=== PATIENT | female | born 1945 | race Caucasian/White ===

== ENCOUNTER 2020-02-06 12:03 | Emergency (ER) | payer OTHER, MEDICARE ==
[2020-02-06 12:36] LABS: Absolute Lymphocytes (CBC) 1.3 K/uL (0.7-4.9); Basophils % 0.9 % (0-1.3); Hematocrit 45.4 % (36.0-45.0); MPV 9.5 fL (7.6-11.3); Protime INR 0.99; RBC Red Blood Cell Count 5.13 M/uL (3.86-4.86)
--- NOTE | 2020-02-06 12:36 | EKG ---
Test Date: 2020-02-06 Test Time: 12:12:39 [place] Singer: BP MEASUREMENT RESULTS: Intervals: Rate: 83 KS: 134 QRSD: 74 QT: 366 QTc: 430 [place]: P: 47 KS: 134 QRS: 19 T: 46 INTERPRETIVE STATEMENTS: Normal sinus rhythm Nonspecific ST and T wave abnormality Abnormal ECG Compared to ECG 08/22/2014 11:18:15 ST (T wave) deviation now present Electronically Signed On 02-06-20 12:35:20 CDT by Davon Malhotra
[2020-02-06 12:54] LABS: ALT/SGPT 9 U/L (12-78); AST/SGOT 15 U/L (15-37); Albumin 3.9 g/dL (3.4-5.0); Alkaline Phosphatase 109 U/L (45-117); BUN Blood Urea Nitrogen 11 mg/dL (7-18); Bicarbonate 23 mmol/L (21-32); Bilirubin Direct 0.1 mg/dL (0-0.2); Bilirubin Total 0.4 mg/dL (0.2-1.0); Glucose Level 99 mg/dL (74-106); Magnesium 2.1 mg/dL (1.8-2.4); NT PRO-BNP 252 pg/mL (<125); Protein, Total 7.5 g/dL (6.4-8.2); Sodium Level 145 mmol/L (136-145); Troponin (Emerg Dept Use Only) < 0.02 ng/mL (0.0-0.045)
[2020-02-06] MEDS ORDERED: ASPIRIN 81 MG CHEWABLE TABLET ONE (12:54)
[2020-02-06] MEDS ORDERED: ONDANSETRON 4 MG/2 ML VIAL ONE (13:03)
[2020-02-06 13:07] LABS: Blood Morphology Comment NOT SEEN (NOT SEEN); Platelet Estimate ADEQ; Urine White Blood Cell Casts OK
[2020-02-06] MEDS ORDERED: FENTANYL CITR 100 MCG/2 ML ONE (13:07)
--- NOTE | 2020-02-06 13:14 | RAD REPORT ---
EXAM DESCRIPTION: RAD - Chest Single View - 02/06/2020 1:06 pm CLINICAL HISTORY: CHEST PAIN COMPARISON: Two view chest December 2007 TECHNIQUE: AP portable chest image was obtained 02/06/2020 1:06 pm . FINDINGS: No peripheral mass or consolidation. Lung markings are accentuated slightly by shallow ins piration and overlying soft tissues. No significant change in the interstitial pattern since remote i maging. Heart size is normal. No vascular engorgement. Rounded density along the right-side lower thoracic sp ine is probably summation of vasculature accentuated by the low lung volume examination. No measurabl e pleural effusion and no pneumothorax. No acute bony abnormality seen. No acute aortic findings susp ected. IMPRESSION: No failure, infiltrate or acute chest finding. Small rounded density along the right side lower thoracic spine is probably artifact of overlapping n ormal structures. Follow-up two view chest with good inspiration could be obtained.
--- OUTSIDE RECORDS SUMMARY | 2020-02-06 14:04 | XMS REPORT | Continuity of Care Document ---
:1945 Author Organization [facility] Care Team Providers Name Role Phone [facility] Unavailable Un available Problems Problem Status Onset Classification Date Comments Sourc e Date Reported M84.351A - Active [facility] "STRESS 7 [place] FRACTURE, RIGHT FEMUR Medications No Data Provided for This Section Allergies, Adverse Reactions, Alerts No Known Medication Allergies Immunizations No Data Provided for This Section Results No Data Provided for This Section Pathology Reports No Data Provided for This Section Diagnostic Reports Report Value Date Source Femur wo contrast MRI MRI RIGHT FEMUR WITHOUT CONTRAST 7 [facility] HISTORY: ; M84.351A Str ess fracture, right femur, initial encounter for fracture; right lower extremity pain COMPARISON: None available. FINDINGS: Right femur appears normal. Bone marrow signal is normal. No fracture, osseous stress reaction, or osseous lesion is identified. There is mild soft tissue in flammatory-like signal at the distal myotendinous junction of the vastus lateralis which is incompletely visualized and suggestive of possible low-grade myotendinous strain v ersus volume averaging with the transition to the suprapatellar recess of the knee joint (axial series 701 images 5 and 6). No other soft tissue abnorma lity is seen. No soft tissue mass or fluid collection. IMPRESSION: 1. Normal right femur. No stress fracture or oss eous stress reaction. 2. Trace inflammatory-like s ignal at the distal myotendinous junction of the vastus lateralis is incompletely visualized and could represent low-grade strain or may represent volume averaging of the nor mal transition to the knee joint. Correlate clin ically. SL: [id number] Consultation Notes No Data Provided for This Section Discharge Summaries No Data Provided for This Section History and Physicals No Data Provided for This Section Vital Signs No Data Provided for This Section Encounters Location Location Encounter Encounter Reason Attending ADM [place] Stat Source Details Type Number For Provider Date Date Visit [facility] Outpt Dia [id number] Venancio 08/21 08/22 [facility] Amarilis Hughes /2016 [facility] Procedures No Data Provided for This Section Assessment and Plan No Data Provided for This Section Plan of Care No Data Provided for This Section Social History Social History Date Source No data available for this 08/22/2016 [facility] and section Family History No Data Provided for This Section Advance Directives No Data Provided for This Section Functional Status No Data Provided for This Section
--- NOTE | 2020-02-06 14:29 | ER ---
Nurse's Notes [facility] Name: Lakeisha Rea Age: 74 yrs Sex: Female : 1945 Arrival Date: 02/06/2020 Time: 12:05 Bed 18 Private MD: Chapo De Diagnosis: Chest pain, unspecified Presentation: 02/05 12:19 Chief complaint: Patient states: left sided chest pain started upon waking this morning iw at 0500. 12:19 Method Of Arrival: Ambulatory iw 12:19 Coronavirus screen: At this time, the client does not indicate any symptoms associated iw with coronavirus-19. Ebola Screen: Patient negative for fever greater than or equal to 101.5 degrees Fahrenheit, and additional compatible Ebola Virus Disease symptoms Patient denies exposure to infectious person. Patient denies travel to an Ebola-affected area in the 21 days before illness onset. No symptoms or risks identified at this time. Risk Assessment: Do you want to hurt yourself or someone else? Patient reports no desire to harm self or others. 12:19 Acuity: CARLOS 3 iw 13:08 Initial Sepsis Screen: Does the patient meet any 2 criteria?. bp Triage Assessment: 12:20 General: Appears in no apparent distress. comfortable, obese, Behavior is cooperative, bp appropriate for age, anxious. Pain: Complains of pain in chest. EENT: No deficits noted. Neuro: No deficits noted. Cardiovascular: Rhythm is sinus rhythm. Respiratory: No deficits noted. GI: No signs and/or symptoms were reported involving the gastrointestinal system. : No signs and/or symptoms were reported regarding the genitourinary system. Derm: No deficits noted. Musculoskeletal: No deficits noted. Historical: - Allergies: 12:37 Codeine; iw - Home Meds: 12:56 topiramate 25 mg oral tab 2 times per day [Active]; Treximet 85-500 mg oral tab daily iw [Active]; lansoprazole 30 mg oral cpDR 1 cap once daily [Active]; - PMHx: 12:56 Migraines; acid reflux; iw - PSHx: 12:56 Hysterectomy; iw - Immunization history:: Adult Immunizations up to date. - Social history:: Smoking status: Patient denies any tobacco usage or history of. Screenin:40 Abuse screen: Denies threats or abuse. Denies injuries from another. Nutritional bp screening: No deficits noted. Tuberculosis screening: No symptoms or risk factors identified. Fall Risk None identified. Assessment: 12:20 General: SEE TRIAGE NOTE. Pain: Pain radiates to neck Pain began 2-3 days ago. bp Cardiovascular: Rhythm is sinus rhythm. 12:59 Reassessment: PT DECLINING IV ANALGESICS AT THIS TIME. PROVIDER INFORMED. bp 13:06 Reassessment: PT REFUSING ADMIT, INSIST ON SIGN OUT AMA. PROVIDER AT B/S TO SUPERVISOR METAL CANS PT bp TO REMAIN, BUT PT DECLINES. STATES NO CURRENT ACUTE S/S. PT ADVISED TO RETURN OR CALL 911 IS S/S RETURN OR WORSEN. 13:30 Reassessment: PT AGREED TO REMAIN FOR CXR 2 VIEW. bp 14:56 Reassessment: CXR UNREMARKABLE PER PROVIDER. PT [place]. bp Vital Signs: 12:19 BP 118 / 72; Pulse 88; Resp 16 S; Temp 98.0; Pulse Ox 100% on R/A; Weight 72.12 kg; iw Height 4 ft. 10 in. (147.32 cm); Pain 5/10; 13:00 BP 128 / 71; Pulse 81; Resp 16; Pulse Ox 100% ; bp 13:48 BP 127 / 61; Pulse 70; Resp 16; Temp 98; Pulse Ox 99% ; bp 12:19 Body Mass Index 33.23 (72.12 kg, 147.32 cm) iw ED Course: 12:05 Patient arrived in ED. ag5 12:05 Chapo De MD is Private Physician. ag5 12:08 Chapo Casillas, RN is Primary Nurse. bp 12:09 Angela Galeas FNP-C is PHCP. kb 12:09 Peter Gresham MD is Attending Physician. kb 12:30 Inserted saline lock: 20 gauge in right antecubital area, using aseptic technique. bp Blood collected. 12:36 Triage completed. iw 12:37 Arm band placed on. iw 12:40 Patient has correct armband on for positive identification. Placed in gown. Bed in low bp position. Call light in reach. Side rails up X2. food editor on. Pulse ox on. NIBP on. 13:06 XRAY Chest (1 view) In Process Unspecified. EDMS 13:07 No provider procedures requiring assistance completed. IV discontinued, intact, bp bleeding controlled, No redness/swelling at site. Pressure dressing applied. Patient maintains SpO2 saturation greater than 95% on room air. 13:49 Chest Pa And Lat (2 Views) XRAY Sent. bp 14:28 Chapo De MD is Referral Physician. kb 14:40 Chest Pa And Lat (2 Views) XRAY In Process Unspecified. EDMS Administered Medications: 12:45 Drug: Aspirin Chewable Tablet 324 mg Route: PO; bp 12:50 Follow up: Response: No adverse reaction bp 13:05 Not Given (Patient Refused): Zofran (Ondansetron) 4 mg IVP once; over 2 minutes bp 13:05 Not Given (Patient Refused): fentaNYL (PF) 50 mcg IVP once; RASS on ADMIN: Combtv4, bp Very Agttd3, Agttd2, Rstlss1, AlertClm0, Drwsy-1, Lt Sdtn-2, Mod Sdtn-3, Dp Sdtn-4, UnArsble-5 Outcome: 13:07 AMA AMA form signed bp 13:07 Condition: stable 13:07 Instructed on the need for admit. 14:56 Patient left the ED. bp Signatures: Dispatcher [employer] EDMS Angela Galeas, TOOL TECHNICIAN-C TOOL TECHNICIAN-Komal Johnson, RN RN Chapo Green, RN RN Tucker Valero ag5 Corrections: (The following items were deleted from the chart) 12:41 12:19 Pulse 88bpm; Resp 16bpm; Spontaneous; Pulse Ox 100% RA; Temp 98.0F; 72.12 kg; iw Height 4 ft. 10 in.; BMI: 33.2; Pain 5/10; iw
--- NOTE | 2020-02-06 14:29 | EDPHYS ---
Physician Documentation [facility] Name: Lakeisha Rea Age: 74 yrs Sex: Female : 1945 Arrival Date: 02/06/2020 Time: 12:05 Bed 18 Private MD: Chapo De ED Physician Peter Gresham HPI: 02/05 14:08 This 74 yrs old Female presents to ER via Ambulatory with complaints of Chest kb Pain. 14:08 The patient or guardian reports chest pain that is located primarily in the anterior kb chest wall, left. Onset: this morning. The pain radiates to the left arm, left neck. Associated signs and symptoms: The patient has no apparent associated signs or symptoms. The chest pain is described as aching. Duration: The patient or guardian reports a single episode, that is still ongoing. Modifying factors: The symptoms are alleviated by nothing. the symptoms are aggravated by nothing. Severity of pain: At its worst the pain was moderate a 8 / 10 in the emergency department the pain has improved moderately, is a 5 / 10. The patient has not experienced similar symptoms in the past. The patient has been recently seen by a physician: the patient's primary care provider, earlier today, with similar presenting complaints, and was sent to the [facility] Emergency Department for further evaluation. Pt reports left chest pain that woke her from sleep at 0500 this morning. States the pain radiated to left neck and arm. She rested in bed for a while and the pain dulled, but never subsided. Went to Dr De's office and was told to come to the ER for evaluation. Historical: - Allergies: 12:37 Codeine; iw - Home Meds: 12:56 topiramate 25 mg oral tab 2 times per day [Active]; Treximet 85-500 mg oral tab daily iw [Active]; lansoprazole 30 mg oral cpDR 1 cap once daily [Active]; - PMHx: 12:56 Migraines; acid reflux; iw - PSHx: 12:56 Hysterectomy; iw - Immunization history:: Adult Immunizations up to date. - Social history:: Smoking status: Patient denies any tobacco usage or history of. ROS: 14:08 Constitutional: Negative for fever, chills, and weight loss, Neck: Negative for injury, kb pain, and swelling, Respiratory: Negative for shortness of breath, cough, wheezing, and pleuritic chest pain, Abdomen/GI: Negative for abdominal pain, nausea, vomiting, diarrhea, and constipation, Back: Negative for injury and pain, MS/Extremity: Negative for injury and deformity, Skin: Negative for injury, rash, and discoloration, Neuro: Negative for headache, weakness, numbness, tingling, and seizure. 14:08 Cardiovascular: Positive for chest pain, of the anterior aspect of left upper chest. Exam: 14:08 Constitutional: This is a well developed, well nourished patient who is awake, alert, kb and in no acute distress. Head/Face: Normocephalic, atraumatic. Chest/axilla: Normal chest wall appearance and motion. Nontender with no deformity. No lesions are appreciated. Cardiovascular: Regular rate and rhythm with a normal S1 and S2. No gallops, murmurs, or rubs. Normal PMI, no JVD. No pulse deficits. Respiratory: Lungs have equal breath sounds bilaterally, clear to auscultation and percussion. No rales, rhonchi or wheezes noted. No increased work of breathing, no retractions or nasal flaring. Abdomen/GI: Soft, non-tender, with normal bowel sounds. No distension or tympany. No guarding or rebound. No evidence of tenderness throughout. Skin: Warm, dry with normal turgor. Normal color with no rashes, no lesions, and no evidence of cellulitis. MS/ Extremity: Pulses equal, no cyanosis. Neurovascular intact. Full, normal range of motion. Neuro: Awake and alert, GCS 15, oriented to person, place, time, and situation. Cranial nerves II-XII grossly intact. Motor strength 5/5 in all extremities. Sensory grossly intact. Cerebellar exam normal. Normal gait. Vital Signs: 12:19 BP 118 / 72; Pulse 88; Resp 16 S; Temp 98.0; Pulse Ox 100% on R/A; Weight 72.12 kg; iw Height 4 ft. 10 in. (147.32 cm); Pain 5/10; 13:00 BP 128 / 71; Pulse 81; Resp 16; Pulse Ox 100% ; bp 13:48 BP 127 / 61; Pulse 70; Resp 16; Temp 98; Pulse Ox 99% ; bp 12:19 Body Mass Index 33.23 (72.12 kg, 147.32 cm) iw MDM: 12:09 Patient medically screened. kb 14:06 Data reviewed: vital signs, nurses notes. Data interpreted: Pulse oximetry: on room air kb is 99 %. Interpretation: normal. Counseling: I had a detailed discussion with the patient and/or guardian regarding: the historical points, exam findings, and any diagnostic results supporting the discharge/admit diagnosis, lab results, radiology results, the need for further work-up and treatment in the hospital. Response to treatment: and as a result, I will admit patient. 14:07 Refusal of service: The patient/guardian displays adequate decision making capability kb and despite a detailed discussion of alternatives, benefits, risks, and consequences refuses: Admission to the hospital for further work-up and treatment. 14:10 ED course: Pt educated on need to be admitted for further evaluation and serial cardiac kb enzymes. Pt does not want to stay, states she didn't think she even needed to come in the first place. Educated on risks of leaving AMA. Pt will return for worsening symptoms and as needed, as well as follow up with Dr De. . 14:12 The patient was given aspirin in the Emergency Department. kb 02/05 12:09 Order name: Basic Metabolic Panel; Complete Time: 12:59 kb 02/05 12:09 Order name: CBC with Diff; Complete Time: 13:10 kb 02/05 12:09 Order name: LFT's; Complete Time: 12:59 kb 02/05 12:09 Order name: Magnesium; Complete Time: 12:59 kb 02/05 12:09 Order name: NT PRO-BNP; Complete Time: 12:59 kb 02/05 12:09 Order name: PT-INR; Complete Time: 12:47 kb 02/05 12:09 Order name: Troponin (emerg Dept Use Only); Complete Time: 12:59 kb 02/05 12:09 Order name: XRAY Chest (1 view); Complete Time: 13:16 kb 02/05 12:09 Order name: EKG; Complete Time: 12:10 kb 02/05 12:44 Order name: CBC Smear Scan; Complete Time: 13:10 EDMS 02/05 13:11 Order name: Chest Pa And Lat (2 Views) XRAY; Complete Time: 14:53 kb 02/05 12:09 Order name: Cardiac monitoring; Complete Time: 12:15 kb 02/05 12:09 Order name: EKG - Nurse/Tech; Complete Time: 12:15 kb 02/05 12:09 Order name: IV Saline Lock; Complete Time: 12:30 kb 02/05 12:09 Order name: Labs collected and sent; Complete Time: 12:30 kb 02/05 12:09 Order name: O2 Per Protocol; Complete Time: 12:15 kb 02/05 12:09 Order name: O2 Sat Monitoring; Complete Time: 12:15 kb Administered Medications: 12:45 Drug: Aspirin Chewable Tablet 324 mg Route: PO; bp 12:50 Follow up: Response: No adverse reaction bp 13:05 Not Given (Patient Refused): Zofran (Ondansetron) 4 mg IVP once; over 2 minutes bp 13:05 Not Given (Patient Refused): fentaNYL (PF) 50 mcg IVP once; RASS on ADMIN: Combtv4, bp Very Agttd3, Agttd2, Rstlss1, AlertClm0, Drwsy-1, Lt Sdtn-2, Mod Sdtn-3, Dp Sdtn-4, UnArsble-5 Disposition: 16:34 Co-signature as Attending Physician, Peter Gresham MD I agree with the assessment and kdr plan of care. Disposition: 02/06/20 14:28 Patient has left against medical advice. Impression: Chest pain, unspecified. - Patients states they are going to Home. - Condition is Stable. Follow up: Emergency Department; When: As needed; Reason: Worsening of condition. Follow up: Chapo De MD; When: 2 - 3 days; Reason: Recheck today's complaints, Continuance of care, Re-evaluation by your physician. - Problem is new. - Symptoms have improved. Signatures: Dispatcher [employer] EDMS Angela Galeas, EMBER-C TICKET TAKER-Peter Chaney MD MD kdr Williams, Irene, RN RN iw Chapo Casillas RN RN bp Corrections: (The following items were deleted from the chart) 14:56 14:28 02/06/2020 14:28 Patients has left against medical advice. Impression: Chest bp pain, unspecified. Patient states they are going to Home. Condition is Stable. Follow up: Emergency Department; When: As needed; Reason: Worsening of condition. Follow up: Chapo De; When: 2 - 3 days; Reason: Recheck today's complaints, Continuance of care, Re-evaluation by your physician. Problem is new. Symptoms have improved. kb
--- NOTE | 2020-02-06 14:50 | RAD REPORT ---
EXAM DESCRIPTION: Sarah Reddy (2 Views)02/06/2020 2:40 pm CLINICAL HISTORY: Chest pain COMPARISON: February 06, 2020 FINDINGS: Previously described round density along the right lower thoracic spine is not visualized on the current examination The lungs appear clear of acute infiltrate. The heart is normal size IMPRESSION: No acute abnormalities displayed
[2020-02-06 15:05] VITALS: BP 127/61; TEMP 98; O2SAT 99
== END 2020-02-06 14:56 | disposition left against medical advice (07) ==
LOC: ER 12:03
DX: R07.9 Chest pain, unspecified (principal); Z88.5 Allergy status to narcotic agent
CPT/HCPCS: 93005; 85025; 80048; 36415; 83735; 85610; 80076; 84484; 83880; 71045; 71046; J3010; J2405; 99285